=== PATIENT | female | born 1960 | race Caucasian/White ===

== ENCOUNTER 2021-04-27 10:14 | Emergency (ER) | payer OTHER, BC ==
[~2021-04-27] VITALS: Ht 160 cm; Wt 98.9 kg
[2021-04-27 10:33] VITALS: BP_SYST 150
--- NOTE | 2021-04-27 10:40 | NUR ---
Patient transported to radiology via AMBULATION, accompanied by RAD STAFF.
--- NOTE | 2021-04-27 11:30 | NUR ---
PT LWBS BY KAITLIN
--- NOTE | 2021-04-27 12:55 | NUR ---
Pt. left without being seen by MD but xray was done and shows fx. called pt. and asked her to come back in for splinting, pt. declined, stated she will wrap wrist herself and keep it immobile and call her PCP first thing in am to f/u with ortho
== END 2021-04-27 12:55 | disposition left against medical advice (07) ==
LOC: SED 10:14
DX: M25.532 Pain in left wrist (principal); Z53.21 Procedure and treatment not carried out due to patient leaving prior to being seen by health care provider

== ENCOUNTER 2021-10-05 10:30 | Emergency (ER) | payer OTHER, BC ==
[~2021-10-05] VITALS: Ht 160 cm; Wt 104.3 kg
[2021-10-05 10:45] VITALS: BP_SYST 128
== END 2021-10-05 12:13 | disposition left against medical advice (07) ==
LOC: SED 10:30
DX: T84.53XA Infection and inflammatory reaction due to internal right knee prosthesis, initial encounter (principal)
CPT/HCPCS: 99281